=== PATIENT | female | born 1995 | race Two or more races ===

== ENCOUNTER 2025-04-18 09:15 | Outpatient (CLI) | payer OTHER, SELFPAY ==
--- NOTE | ~2025-04-18 | US_ITS ---
US breast BI complete 04/18/2025 09:47 Indication: Right breast pain. Palpable area left breast. Procedure: High-resolution complete bilateral breast ultrasound Comparison: No prior studies for comparison. Findings: Normal heterogeneous echotexture in the right breast without discrete solid or cystic mass. In the left breast at 6:00, 1 cm from the nipple in the area of palpable concern there is an oval pa rallel oriented hypoechoic mass measuring 6 x 5 x 5 mm without internal vascularity. There is posteri or acoustic enhancement, likely benign. Impression: 1: Probable benign 6 mm left breast mass at 6:00, 1 cm from the nipple. 2: No sonographic evidence for malignancy in the right breast. BI-RADS CATEGORY 3-PROBABLY BENIGN FINDING RECOMMENDATION: Limited left breast ultrasound recommended. Reviewed, dictated and finalized at location [] Impression: 1: Probable benign 6 mm left breast mass at 6:00, 1 cm from the nipple. 2: No sonographic evidence for malignancy in the right breast. BI-RADS CATEGORY 3-PROBABLY BENIGN FINDING RECOMMENDATION: Limited left breast ultrasound recommended.
== END 2025-04-18 09:16 | disposition home or self-care (01) ==
LOC: MICIMG 09:15
PROVIDERS: PCP Student in an Organized Health Care Education/Training Program; Visit Provider Student in an Organized Health Care Education/Training Program
DX: N63.25 Unspecified lump in the left breast, overlapping quadrants (principal)
CPT/HCPCS: 76641

== ENCOUNTER 2025-09-19 09:25 | Outpatient (CLI) | payer OTHER, SELFPAY ==
--- NOTE | ~2025-09-19 | US_ITS ---
US breast LT limited 09/19/2025 09:41 Indication: Follow-up left breast mass Procedure: High-resolution ultrasound of the left breast Comparison: Ultrasound dated 04/18/2025 Findings: At 6:00, 1 cm from the nipple there is an oval hypoechoic mass measuring 7 x 6 x 5 mm with posterior enhancement and no significant internal vascularity. This is not significantly changed allowing for differences of technique compared with prior study. Impression: 1: Stable likely benign 7 mm left breast mass at 6:00, 1 cm from the nipple. BI-RADS CATEGORY 3-PROBABLY BENIGN FINDING RECOMMENDATION: 6 month follow-up Limited left breast ultrasound recommended. Reviewed, dictated and finalized at location [facility] Impression: 1: Stable likely benign 7 mm left breast mass at 6:00, 1 cm from the nipple. BI-RADS CATEGORY 3-PROBABLY BENIGN FINDING RECOMMENDATION: 6 month follow-up Limited left breast ultrasound recommended.
== END 2025-09-19 09:26 | disposition home or self-care (01) ==
PROVIDERS: PCP Student in an Organized Health Care Education/Training Program; Visit Provider Student in an Organized Health Care Education/Training Program
DX: R92.8 Other abnormal and inconclusive findings on diagnostic imaging of breast (principal)
CPT/HCPCS: 76642